=== PATIENT | female | born 1990 | race Caucasian/White ===

== ENCOUNTER → 2017-04-17 | Outpatient (CLI) | payer OTHER ==
--- NOTE | 2017-04-17 15:22 | RAD ---
Indication abnormal uterine bleeding. Initially transabdominal scans were obtained. Initial transabdominal scans were supplemented with transvaginal scans. The hCG status is uncertain but for the purposes of this dictation will be assumed to be negative. The uterus measures approximately 7.6 x 5 x 3.6 cm. Endometrial thickness is approximately 5 mm which is normal. Both ovaries appear unremarkable. There is no significant free fluid in the pelvis. IMPRESSION: Normal study
== END | disposition home or self-care (01) ==
LOC: US 12:46
PROVIDERS: ATTEND Nurse Practitioner Family
DX: N94.5 Secondary dysmenorrhea (principal); N93.8 Other specified abnormal uterine and vaginal bleeding
CPT/HCPCS: 76830; 76856

== ENCOUNTER 2017-04-30 19:05 | Emergency (ER) | payer OTHER ==
[~2017-04-30] VITALS: Ht 170.2 cm; Wt 70.3 kg
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
[2017-04-30 22:00] VITALS: BP 130/63
--- NOTE | 2017-05-01 08:13 | RAD ---
Left forearm, 2 views, 04/30/2017: History: Injury No fracture or bony abnormality is detected. The soft tissues are unremarkable. IMPRESSION: No significant abnormality is detected.
== END 2017-04-30 22:00 | disposition home or self-care (01) ==
LOC: ER 19:05
DX: S50.12XA Contusion of left forearm, initial encounter (principal); Z88.2 Allergy status to sulfonamides; Y04.0XXA Assault by unarmed brawl or fight, initial encounter; Y93.89 Activity, other specified; Y99.8 Other external cause status; Y92.89 Other specified places as the place of occurrence of the external cause
CPT/HCPCS: 73090; 99283; 99284

== ENCOUNTER 2017-05-09 23:43 | Emergency (ER) | payer OTHER ==
[~2017-05-09] VITALS: Ht 167.6 cm; Wt 73.4 kg
[2017-05-10] MEDS ORDERED: ONDANSETRON PF 4 MG/2 ML VIAL. IV ONE (00:30)
[2017-05-10] MEDS ORDERED: IV NORMAL SALINE 1,000ML 1,000 ML IV SCH (00:33)
[2017-05-10] MEDS ORDERED: ONDANSETRON PF 4 MG/2 ML VIAL. ONE (00:45)
[2017-05-10 01:05] LABS: BASO # 0.1 x10^3/uL (0.0-0.2); BASO % 1 % (0-3); EOS # 0.2 x10^3/uL (0.0-0.7); EOS % 2 % (0-3); HEMOGLOBIN 13.4 g/dL (12.0-15.5); LYMPH # 3.6 x10^3/uL (1.0-4.8); LYMPH % 35 % (24-48); MEAN CORPUSCULAR HEMOGLOBIN 31 pg (25-35); MEAN CORPUSCULAR HGB CONC 34 g/dL (31-37); MEAN CORPUSCULAR VOLUME 89 fL (79-100); MONO # 0.9 x10^3/uL (0.0-1.1); MONO % 9 % (0-9); NEUT # 5.5 x10^3uL (1.8-7.7); NEUT % 54 % (31-73); PLATELET COUNT 286 x10^3/uL (140-400); RED BLOOD COUNT 4.41 x10^6/uL (3.50-5.40); RED CELL DISTRIBUTION WIDTH 12.4 % (11.5-14.5); WHITE BLOOD COUNT 10.3 x10^3/uL (4.0-11.0)
[2017-05-10 01:19] LABS: PREG TEST PT QUAL NEGATIVE (NEG)
[2017-05-10] MEDS ORDERED: L-NO1TBD18 PO (01:20)
[2017-05-10 01:21] LABS: BILIRUBIN,URINE NEG (NEG); CLARITY,URINE CLEAR; COLOR,URINE YELLOW; GLUCOSE,URINE NEG (NEG)
[2017-05-10 01:22] LABS: BACTERIA,URINE 0 /HPF (0-FEW); NITRITE,URINE NEG (NEG); RBC,URINE 0 /HPF (0-2); SQUAMOUS EPITHELIAL CELL,UR FEW /LPF; UROBILINOGEN,URINE 0.2 mg/dL (0.2 mg/dL); WBC,URINE RARE /HPF (0-4)
[2017-05-10 01:27] LABS: ALBUMIN 3.7 g/dL (3.4-5.0); ALBUMIN/GLOBULIN RATIO 1.1 (1.0-1.7); CALCIUM 8.7 mg/dL (8.5-10.1); CREATININE 0.8 mg/dL (0.6-1.0); GFR 87.4; POTASSIUM 3.8 mmol/L (3.5-5.1); TOTAL BILIRUBIN 0.4 mg/dL (0.2-1.0); TOTAL PROTEIN 7.2 g/dL (6.4-8.2)
--- NOTE | 2017-05-10 01:27 | ED.ADGEN ---
Past History Past Medical History: No Pertinent History Past Surgical History: No Surgical History Alcohol Use: None Drug Use: None Adult General HPI HPI Patient is a 27-year-old woman, who presents the emergency department with a complaint of sudden onset lower abdominal pain that began earlier this evening. Patient states that she underwent an egg harvesting 4 days ago, and received her last injection of hormone steroids 5 days ago. She states that the procedure was performed without issue [facility] [place]. She states that she was started back on her usual control medication 2 days ago. Patient states that she was experiencing mild cramping after the procedure, but no nausea or vomiting, fevers or chills, flank pain, urinary complaints, no lightheadedness or dizziness, chest pain shortness of breath, swelling extremities or other concerning symptoms until she got up from her bed around 11 PM, and felt a sudden onset of sharp stabbing and cramping pain in her lower abdomen that radiated up towards her upper abdomen and chest. She denies any vaginal bleeding or discharge. States that she was last sexually active about a month ago, denies any insertions or injuries to the vagina, back or abdomen. She has not taken any medication for pain prior to coming to the ED. Denies any previous abdominal procedures or similar symptoms. Review of Systems Review of Systems Constitutional: Denies fever or chills [] Eyes: Denies change in visual acuity, redness, or eye pain [] HENT: Denies nasal congestion or sore throat [] Respiratory: Denies cough or shortness of breath [] Cardiovascular: No additional information not addressed in HPI [] GI: Denies nausea, vomiting, bloody stools or diarrhea, complaining of sharp and cramping lower abdominal pain rating into her upper abdomen. [] : Denies dysuria or hematuria [] Musculoskeletal: Denies back pain or joint pain [] Integument: Denies rash or skin lesions [] Neurologic: Denies headache, focal weakness or sensory changes [] Endocrine: Denies polyuria or polydipsia [] Current Medications Current Medications Current Medications Medications (Trade) Dose Ordered Sig/Jen Start Time Stop Time Status Last Admin Dose Admin Fentanyl Citrate (Fentanyl 2ml Vial) 100 mcg STK-MED ONCE 05/10/17 00:45 05/10/17 00:46 DC Ondansetron HCl (Zofran) 4 mg STK-MED ONCE 05/10/17 00:45 05/10/17 00:46 DC Oxycodone/ Acetaminophen (Percocet 5/325) 1 tab 1X ONCE 05/10/17 03:30 05/10/17 03:31 Sodium Chloride 1,000 ml @ 1,000 mls/hr Q1H 05/10/17 00:33 05/10/17 01:32 DC 05/10/17 00:33 1,000 MLS/HR Allergies Allergies Allergies Coded Allergies Type Severity Reaction Last Updated Verified Sulfa (Sulfonamide Antibiotics) Allergy Intermediate 08/24/15 Yes sesame seed Allergy Intermediate 05/10/17 Yes Physical Exam Physical Exam Constitutional: Well developed, well nourished, appears uncomfortable, non- toxic appearance. [] HENT: Normocephalic, atraumatic, bilateral external ears normal, oropharynx moist, no oral exudates, nose normal. [] Eyes: PERRLA, EOMI, conjunctiva normal, no discharge. [] Neck: Normal range of motion, no tenderness, supple, no stridor. [] Cardiovascular:Heart rate regular rhythm, no murmur, S1, S2, no rubs or gallops. Lungs & Thorax: Bilateral breath sounds clear to auscultation, no wheezing, rhonchi, rales. No chest wall crepitus or tenderness. Abdomen: Bowel sounds normal, soft, patient with tenderness palpation in the pelvic region, no rebound, rigidity, no guarding, no masses, no pulsatile masses. [] Skin: Warm, dry, no erythema, no rash. [] Back: No tenderness, no CVA tenderness. [] Extremities: No tenderness, no cyanosis, no clubbing, ROM intact, no edema. [] Neurologic: Alert and oriented X 3, normal motor function, normal sensory function, no focal deficits noted. [] Psychologic: Affect normal, judgement normal, mood normal. [] Pelvic examination: Patient resting more comfortably receiving analgesia in the ED. External examination is unremarkable, aside from small, of thick white discharge noted on the labia minora, no lesions or other abnormalities identified. Bimanual examination reveals mild CMT, with mild bilateral adnexal tenderness, right-sided greater than left, no significant masses identified, speculum examination reveals an injected and erythematous cervix with a large amount of thick white yellow discharge, no lesions, active bleeding, masses or other abnormalities identified. Current Patient Data Vital Signs Vital Signs Date Time Temp Pulse Resp B/P (MAP) Pulse Ox O2 Delivery O2 Flow Rate FiO2 05/10/17 01:26 98.5 83 16 97 Room Air Lab Results Laboratory Tests Test 05/10/17 00:05 05/10/17 00:20 05/10/17 00:45 Urine Collection Type Void Urine Color Yellow Urine Clarity Clear Urine pH 7.0 Urine Specific [place] 1.015 Urine Protein Neg (NEG-TRACE) Urine Glucose (UA) Neg mg/dL (NEG) Urine Ketones (Stick) Neg mg/dL (NEG) Urine Blood Neg (NEG) Urine Nitrite Neg (NEG) Urine Bilirubin Neg (NEG) Urine Urobilinogen Dipstick 0.2 mg/dL (0.2 mg/dL) Urine Leukocyte Esterase Neg (NEG) Urine RBC 0 /HPF (0-2) Urine WBC Rare /HPF (0-4) Urine Squamous Epithelial Cells Few /LPF Urine Bacteria 0 /HPF (0-FEW) White Blood Count 10.3 x10^3/uL (4.0-11.0) Red Blood Count 4.41 x10^6/uL (3.50-5.40) Hemoglobin 13.4 g/dL (12.0-15.5) Hematocrit 39.0 % (36.0-47.0) Mean Corpuscular Volume 89 fL (79-100) Mean Corpuscular Hemoglobin 31 pg (25-35) Mean Corpuscular Hemoglobin Concent 34 g/dL (31-37) Red Cell Distribution Width 12.4 % (11.5-14.5) Platelet Count 286 x10^3/uL (140-400) Neutrophils (%) (Auto) 54 % (31-73) Lymphocytes (%) (Auto) 35 % (24-48) Monocytes (%) (Auto) 9 % (0-9) Eosinophils (%) (Auto) 2 % (0-3) Basophils (%) (Auto) 1 % (0-3) Neutrophils # (Auto) 5.5 x10^3uL (1.8-7.7) Lymphocytes # (Auto) 3.6 x10^3/uL (1.0-4.8) Monocytes # (Auto) 0.9 x10^3/uL (0.0-1.1) Eosinophils # (Auto) 0.2 x10^3/uL (0.0-0.7) Basophils # (Auto) 0.1 x10^3/uL (0.0-0.2) Sodium Level 142 mmol/L (136-145) Potassium Level 3.8 mmol/L (3.5-5.1) Chloride Level 107 mmol/L (98-107) Carbon Dioxide Level 24 mmol/L (21-32) Anion Gap 11 (6-14) Blood Urea Nitrogen 10 mg/dL (7-20) Creatinine 0.8 mg/dL (0.6-1.0) Estimated GFR (Cockcroft-Gault) 87.4 BUN/Creatinine Ratio 13 (6-20) Glucose Level 120 mg/dL (70-99) H Calcium Level 8.7 mg/dL (8.5-10.1) Total Bilirubin 0.4 mg/dL (0.2-1.0) Aspartate Amino Transferase (AST) 13 U/L (15-37) L Alanine Aminotransferase (ALT) 20 U/L (14-59) Alkaline Phosphatase 59 U/L (46-116) Total Protein 7.2 g/dL (6.4-8.2) Albumin 3.7 g/dL (3.4-5.0) Albumin/Globulin Ratio 1.1 (1.0-1.7) Serum Test, Qualitative Negative (NEG) POC Urine HCG, Qualitative hcg negative (Negative) Microbiology 05/10/17 Wet Prep - Final, Complete EKG EKG Not indicated.[] Radiology/Procedures Radiology/Procedures [][place] [address] IMAGING REPORT Signed PATIENT: JOSE GARSIA ACCOUNT: [id number] : 1990 LOCATION: ER AGE: 27 SEX: F EXAM STATUS: REG ER ORD. PHYSICIAN: LÓPEZ PRINCE DO REASON: Vag bleeding/abd pain s/p egg harvesting PROCEDURE: US PELVIS W/TV EXAM: US PELVIS W/TV HISTORY: VAG BLEEDING, ABD PAIN S/P EGG HARVESTING COMPARISON: None. TECHNIQUE: Transverse and longitudinal sonography of the pelvis is performed utilizing transabdominal and transvaginal transducers. FINDINGS: Transabdominal imaging demonstrates the uterus to measure 7.8 x 3.9 x 4.7 cm. Endometrial thickness measures 11 mm. The left ovary is visualized measuring 3.1 x 2.4 x 3.1 cm, containing a 1.7 cm cyst. Internal blood flow is documented. The right ovary is not seen. Transvaginal imaging demonstrates an anteflexed uterus measuring 7.7 x 3.4 x 5.3 cm. Endometrial thickness measures 1.5 cm. The right ovary is visualized measuring 6.3 x 3.6 x 5.7 cm, with internal blood flow documented. Multiple follicles are seen within the right ovary. The left ovary is visualized measuring 5.2 x 3.5 x 4.5 cm, with internal blood flow documented. Multiple follicles are seen within the left ovary. A small to moderate amount of complex appearing free fluid is seen within the dependent pelvis inferior to the right ovary and within the cul-de-sac. IMPRESSION: 1. Bilateral enlarged ovaries with internal blood flow documented. 2. Small to moderate amount of complex appearing free fluid present within the dependent pelvis. 3. Endometrial stripe measures 15 mm, upper limits of normal in size in a premenopausal patient. Electronically signed by: Nara Richards MD (05/10/2017 2:03 AM) [facility] DICTATED AND SIGNED BY: NARA RICHARDS MD DATE: 05/10/17 0157 CC: LÓPEZ PRINCE DO; [place] [facility]-C ~ Course & Med Decision Making Course & Med Decision Making Pertinent Labs and Imaging studies reviewed. (See chart for details) Based on patient's examination, concern for possible ovarian torsion, as she has had recent hormone use, causing enlargement of the ovaries bilaterally with multiple focal ruptures, possible ovarian cyst, or internal bleeding. Patient is agreeable to receiving ultrasound, pelvic examination, laboratory studies, and analgesia. IV was placed without issue, patient received 25 g of fentanyl with significant improvement of her discomfort. Mild tenderness of the pelvic region, patient pelvic examination revealed an engorged cervix, with a moderate amount of white discharge, wet prep was positive for altered shelly, but no clue cells or other abnormal findings. Ultrasound revealed a [id number] amount of free fluid, any true stripe at upper normal limits, with bilateral enlarged ovaries with internal flow no evidence of torsion. I did discuss these findings with the radiologist, Dr. Richards, there is no evidence of continued bleeding or other concerning findings, ovarian flow is normal as stated, examination is consistent with patient's postsurgical state. I did speak with Dr. Winkler of [facility] at the [facility], who is on-call for Dr. King, patient's history, examination, imaging laboratory studies reviewed. Patient with vital signs within normal limits and remains stable in the emergency department, blood pressures 100s over 60s, heart rate in the 60s to 70s, oxygen saturation upper 90s, with unlabored respirations, hemoglobin of 13.4 with normal platelet count, white count of 10.3, electrolytes within normal limits. As stated, ultrasound does not reveal any evidence of torsion or other concerning findings, examination findings are consistent with patient's posterior tragal state. Dr. Winkler does not have any additional medication or evaluation recommendations at this time, as the patient is resting comfortably at this point, with stable vital signs and laboratory studies as stated, recommends the patient be discharged home to continue post retrieval recovery as directed, states that her office will contact the patient this morning to reevaluate in a few hours, and to adjust follow-up as needed. I did discuss this with the patient, she is ambulating in the emergency department without issue, states that her pain is much better at this time, her vital signs remain stable, she is agreeable with the plan to be discharged home, to be contacted by her doctor's office later this morning. I did discuss with her her ultrasound findings, and concerning symptoms that prompt immediate return to the emergency department. Patient voiced understanding and agreement plan as stated, patient received a dose of Percocet in the emergency department, and was given a prescription for a total of 85/325 mg Percocet, to assist with continued breakthrough pain, instructed not to mix with her Tylenol 3 other sedating medications. voiced understanding and agreement with plan, precautions, and follow-up instructions, discharged home in stable condition with significant other with plan as above. Final Impression Final Impression [] Problems: Dragon Disclaimer Dragon Disclaimer This electronic medical record was generated, in whole or in part, using a voice recognition dictation system. Departure: Impression: Primary Impression: Pelvic pain Disposition: 01 HOME, SELF-CARE Condition: IMPROVED Scripts Oxycodone Hcl/Acetaminophen (PERCOCET 5-325 MG TABLET) 1 Each Tablet 1 TAB PO PRN Q6HRS Y for PAIN, #8 TAB Prov: LÓPEZ PRINCE DO 05/10/17 LÓPEZ PRINCE DO May 10, 2017 01:27
--- NOTE | 2017-05-10 02:07 | RAD ---
EXAM: US PELVIS W/TV HISTORY: VAG BLEEDING, ABD PAIN S/P EGG HARVESTING COMPARISON: None. TECHNIQUE: Transverse and longitudinal sonography of the pelvis is performed utilizing transabdominal and transvaginal transducers. FINDINGS: Transabdominal imaging demonstrates the uterus to measure 7.8 x 3.9 x 4.7 cm. Endometrial thickness measures 11 mm. The left ovary is visualized measuring 3.1 x 2.4 x 3.1 cm, containing a 1.7 cm cyst. Internal blood flow is documented. The right ovary is not seen. Transvaginal imaging demonstrates an anteflexed uterus measuring 7.7 x 3.4 x 5.3 cm. Endometrial thickness measures 1.5 cm. The right ovary is visualized measuring 6.3 x 3.6 x 5.7 cm, with internal blood flow documented. Multiple follicles are seen within the right ovary. The left ovary is visualized measuring 5.2 x 3.5 x 4.5 cm, with internal blood flow documented. Multiple follicles are seen within the left ovary. A small to moderate amount of complex appearing free fluid is seen within the dependent pelvis inferior to the right ovary and within the cul-de-sac. IMPRESSION: 1. Bilateral enlarged ovaries with internal blood flow documented. 2. Small to moderate amount of complex appearing free fluid present within the dependent pelvis. 3. Endometrial stripe measures 15 mm, upper limits of normal in size in a premenopausal patient. Electronically signed by: Nadira Richards MD (05/10/2017 2:03 AM) [facility]
[2017-05-10 03:12] VITALS: BP 99/53
[2017-05-10] MEDS ORDERED: OXYC-323 PO (03:19)
[2017-05-10] MEDS ORDERED: oxyCODONE/APAP 5/325 1 TAB TABLET ONE (03:22)
[2017-05-10] MEDS ORDERED: oxyCODONE/APAP 5/325 1 TAB TABLET PO ONE (03:30)
[2017-05-11 15:08] LABS: CHLAMYDIA PROBE Positive (Negative)
== END 2017-05-10 03:35 | disposition home or self-care (01) ==
LOC: ER 23:43
DX: R10.2 Pelvic and perineal pain (principal); Z88.2 Allergy status to sulfonamides; Z91.048 Other nonmedicinal substance allergy status
CPT/HCPCS: 36415; 76830; 76856; 80053; 81001; 81025; 84703; 85025; 87491; 87591; 96361; 96374; 96375; 99285; J2405; J3010; Q0111; J7030

== ENCOUNTER 2018-01-13 14:50 | Emergency (ER) | payer OTHER ==
[~2018-01-13] VITALS: Ht 170.2 cm; Wt 72.6 kg
[~2018-01-13 14:50] MED LIST: L-NO1TBD18 PO; OXYC-323 PO
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
[2018-01-13 15:49] LABS: ALBUMIN 4.3 g/dL (3.4-5.0); DIRECT BILIRUBIN 0.1 mg/dL (0.0-0.2); TOTAL BILIRUBIN 0.4 mg/dL (0.2-1.0); TOTAL PROTEIN 7.6 g/dL (6.4-8.2)
== END 2018-01-13 15:20 | disposition home or self-care (01) ==
LOC: ER 14:50
DX: Z77.21 Contact with and (suspected) exposure to potentially hazardous body fluids (principal); Z88.2 Allergy status to sulfonamides; Z88.8 Allergy status to other drugs, medicaments and biological substances
CPT/HCPCS: 36415; 80076; 86703; 99284

== ENCOUNTER 2018-01-25 17:21 | Emergency (ER) | payer OTHER ==
[~2018-01-25] VITALS: Ht 170.2 cm; Wt 74.8 kg
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
--- NOTE | 2018-01-25 19:23 | RAD ---
Indication: T6-T7, with mild compression deformity of x-rays. TECHNIQUE: CT of the thoracic spine without IV contrast with multiplanar reformats. COMPARISON: None FINDINGS: The thoracic spine is in normal anatomic alignment. The vertebral body heights are maintained. No convincing evidence of compression deformity. The facet joints are in normal anatomic alignment. The visualized lower cervical spine and facet joints are within normal limits. Visualized lungs are clear. Prevertebral soft tissues within normal limits. IMPRESSION: No convincing evidence of compression deformities or other acute fractures. Electronically signed by: Miky Garcia DO (01/25/2018 7:20 PM) [facility]
[2018-01-25 19:28] VITALS: BP 112/82
[2018-01-25] MEDS ORDERED: CYCL-331 PO (19:35)
== END 2018-01-25 19:38 | disposition home or self-care (01) ==
LOC: ER 17:21
DX: S20.222A Contusion of left back wall of thorax, initial encounter (principal); S20.221A Contusion of right back wall of thorax, initial encounter; Z88.2 Allergy status to sulfonamides; Z91.048 Other nonmedicinal substance allergy status; Y08.89XA Assault by other specified means, initial encounter; Y93.89 Activity, other specified; Y99.0 Civilian activity done for income or pay; Y92.89 Other specified places as the place of occurrence of the external cause
CPT/HCPCS: 72128; 81025; 99284-25

== ENCOUNTER 2018-11-09 11:56 | Emergency (ER) | payer OTHER ==
[~2018-11-09] VITALS: Ht 170.2 cm; Wt 76.9 kg
[~2018-11-09 11:56] MED LIST changes: +CYCL-331 PO; -OXYC-323 PO; +OXYC1TAB15 PO
[2018-11-09] MEDS ORDERED: KETOROLAC 30 MG/ML VIAL. IM ONE (12:40)
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
[2018-11-09 13:04] VITALS: BP 113/85
== END 2018-11-09 13:04 | disposition home or self-care (01) ==
LOC: ER 11:56
DX: S00.83XA Contusion of other part of head, initial encounter (principal); R51 Headache; Z88.2 Allergy status to sulfonamides; Z91.048 Other nonmedicinal substance allergy status; W22.03XA Walked into furniture, initial encounter; Y93.89 Activity, other specified; Y92.89 Other specified places as the place of occurrence of the external cause; Y99.8 Other external cause status
CPT/HCPCS: 70450; 70486; 81025; 96372; 99284; J1885

== ENCOUNTER 2018-11-23 21:12 | Emergency (ER) | payer OTHER ==
[2018-11-23 21:20] VITALS: BP 124/86
[2018-11-23] MEDS ORDERED: DICL50TA4 PO (22:09)
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
== END 2018-11-23 22:13 | disposition home or self-care (01) ==
LOC: ER 21:17
DX: S60.222A Contusion of left hand, initial encounter (principal); Z88.2 Allergy status to sulfonamides; Z88.8 Allergy status to other drugs, medicaments and biological substances; W22.8XXA Striking against or struck by other objects, initial encounter; Y93.89 Activity, other specified; Y92.89 Other specified places as the place of occurrence of the external cause; Y99.8 Other external cause status
CPT/HCPCS: 73130; 99284

== ENCOUNTER → 2019-02-19 | Outpatient (CLI) | payer OTHER ==
[~2019-02-19] MED LIST changes: +DICL50TA4 PO
--- NOTE | 2019-02-19 16:08 | RAD ---
2 view study of the left ankle Clinical indications: Left ankle pain FINDINGS: No acute fracture or dislocation or lytic process is evident. Mortise ankle joint is intact. IMPRESSION: No acute fracture. Electronically signed by: Marcus Maxwell MD (02/19/2019 4:04 PM) [facility]
== END | disposition home or self-care (01) ==
LOC: PMG 09:08
DX: M25.572 Pain in left ankle and joints of left foot (principal)
CPT/HCPCS: 73600

== ENCOUNTER 2019-03-08 21:32 | Emergency (ER) | payer OTHER ==
[~2019-03-08] VITALS: Ht 170.2 cm; Wt 76.8 kg
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
[2019-03-08 22:34] VITALS: BP 107/77
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
[2019-03-08] MEDS ORDERED: KETOROLAC 60 MG/2 ML VIAL. IM ONE (23:30)
== END 2019-03-08 23:48 | disposition home or self-care (01) ==
LOC: ER 21:32
DX: S00.83XA Contusion of other part of head, initial encounter (principal); S60.221A Contusion of right hand, initial encounter; Z88.2 Allergy status to sulfonamides; Z88.8 Allergy status to other drugs, medicaments and biological substances; Y04.0XXA Assault by unarmed brawl or fight, initial encounter; Y93.89 Activity, other specified; Y92.89 Other specified places as the place of occurrence of the external cause; Y99.0 Civilian activity done for income or pay
CPT/HCPCS: 70450; 70486; 72125; 73130; 96372; 99284; J1885